=== PATIENT | female | born 1950 | race Two or more races ===

== ENCOUNTER 2016-11-26 09:53 | Emergency (ER) | payer OTHER ==
[2016-11-26 09:57] VITALS: RESP 16
[2016-11-26] MEDS ORDERED: NS 1,000 ML IV ONE (10:46)
[2016-11-26] MEDS ORDERED: HYDROmorphONE/DILAUDID 1 MG/ML SYR IVP ONE (10:46)
--- NOTE | 2016-11-26 10:49 | EDPHY ---
H & P Stated Complaint: vag bleeding, cramping, started last night, cervical ca, chemo manuel Time Seen by Provider: 11/26/16 10:31 HPI/ROS: CHIEF COMPLAINT: Vaginal bleeding HISTORY OF PRESENT ILLNESS: Patient is a 66-year-old female with a history of uterine cancer stage IV treated by Dr. Arvizu with chemotherapy that finished in September. She has been told that it is terminal but is not currently on hospice or palliative care. She began having abdominal cramping and bleeding early this morning. She states that she has had mild to moderate bleeding intermittently. She has not been counting has just simply wiping with toilet paper. She has not had a fever. No vomiting. No dysuria. REVIEW OF SYSTEMS: Constitutional: denies: chills, fever, recent illness, recent injury EENTM: denies: blurred vision, double vision, nose congestion Respiratory: denies: cough, shortness of breath Cardiac: denies: chest pain, irregular heart rate, lightheadedness, palpitations Gastrointestinal/Abdominal: denies: abdominal pain, diarrhea, nausea, vomiting, blood streaked stools Genitourinary: See HPI Musculoskeletal: denies: joint pain, muscle pain Skin: denies: lesions, rash, jaundice, bruising Neurological: denies: headache, numbness, paresthesia, tingling, dizziness, weakness Hematologic/Lymphatic: denies: blood clots, easy bleeding, easy bruising Immunologic/allergic: denies: HIV/AIDS, transplant EXAM: GENERAL: Well-appearing, well-nourished and in no acute distress. HEAD: Atraumatic, normocephalic. EYES: Pupils equal round and reactive to light, extraocular movements intact, sclera anicteric, conjunctiva are normal. ENT: TMs normal, nares patent, oropharynx clear without exudates. Moist mucous membranes. NECK: Normal range of motion, supple without lymphadenopathy or JVD. LUNGS: Breath sounds clear to auscultation bilaterally and equal. No wheezes rales or rhonchi. HEART: Regular rate and rhythm without murmurs, rubs or gallops. ABDOMEN: Mild suprapubic tenderness, normoactive bowel sounds. No guarding, no rebound. Palpable mass suprapubically. : Patient refused. Small amount of blood in her pad. BACK: No CVA tenderness, no spinal tenderness, step-offs or deformities EXTREMITIES: Normal range of motion, no pitting or edema. No clubbing or cyanosis. NEUROLOGICAL: Cranial nerves II through XII grossly intact. Normal speech, normal gait. 5/5 strength, normal movement in all extremities, normal sensation PSYCH: Normal mood, normal affect. SKIN: Warm, dry, normal turgor, no visible rashes or lesions. Source: Patient Exam Limitations: No limitations - Personal History Current Tetanus/Diphtheria Vaccine: Unsure Current Tetanus Diphtheria and Acellular Pertussis (TDAP): Unsure - Medical/Surgical History Hx Asthma: No Hx Chronic Respiratory Disease: No Hx Diabetes: No Hx Cardiac Disease: No Hx Renal Disease: No Hx Cirrhosis: No Hx Alcoholism: No Hx HIV/AIDS: No Hx Splenectomy or Spleen Trauma: No Other PMH: cholecystectomy, lump on Left breast, appy, menopause at age 36, one , shingles 4-5 years ago, various veins, ill fitting dentures causing mouth pain, HTN, Diabetes,uterine/cervical cancer diagnosed 12/25/2015 - Family History Significant Family History: No pertinent family hx - Social History Smoking Status: Current every day smoker Alcohol Use: Sober Drug Use: None Constitutional: Initial Vital Signs Temperature (C) 36.5 C 11/26/16 09:54 Heart Rate 106 H 11/26/16 09:54 Respiratory Rate 16 11/26/16 09:54 Blood Pressure 133/90 H 11/26/16 09:54 O2 Sat (%) 97 11/26/16 09:54 O2 Delivery Mode Room Air Allergies/Adverse Reactions: acetaminophen [From Tylenol] Allergy (Verified 12/23/15 21:41) Home Medications: Medication Instructions Recorded Aspirin EC [Aspirin EC 325 mg (*)] 325 mg PO DAILY #30 tab 12/28/15 Atorvastatin Calcium [Lipitor 20 20 mg PO DAILY #30 tab 12/28/15 mg (*)] Dexamethasone [Decadron 4 MG (*)] 20 mg PO DAILY PRN 01/25/16 Prochlorperazine Maleate 10 mg PO Q6 PRN 01/25/16 [Compazine 10mg (*)] Oxycodone HCl [Dazidox] 5 mg PO Q4-6PRN PRN #10 tablet 11/26/16 Medical Decision Making ED Course/Re-evaluation: I spoke with Dr. Arvizu over the phone who states that she has stage 4 endometrial cancer. No surgery was offered to her at the time but may be appropriate now to help control symptoms and bleeding. He suggested we call Dr. Corrigan. It is common for the patient to refuse pelvic examinations. She has only ever had 1. This bleeding may be from erosion into the vaginal wall versus from the endometrium itself. She is on tamoxifen which can increase vaginal discharge but she has been on this for several months. I will call Dr. Corrigan for her input otherwise she may need to follow up with a metallurgical or materials technician. Dr. Arvizu suggests that this is appropriate for outpatient workup and treatment. 11:45 a.m. I discussed the case with Dr. Yanet Corrigan. She recommends a gynecology specialist. This is appropriate in the outpatient setting. She recommends Dr. Minoo Muse or Dr. Busby. 12:20 p.m. patient did allow me to perform a pelvic exam. She has small amount of blood coming from her office. No visible vaginal source. 12:30 p.m. I spoke to Dr. Daniela muse who agreed to see the patient in clinic. Differential Diagnosis: Partial list of the Differential diagnosis considered include but were not limited to; endometrial cancer, cervical cancer, hemorrhage and although unlikely based on the history and physical exam, I also considered hemorrhage, diverticulitis, GI bleed. I discussed these differential diagnoses and the plan with the patient as well as the usual and expected course. The patient understands that the diagnosis is provisional and that in medicine we are not always correct and that further workup is often warranted. Usual and customary warnings were given. All of the patient's questions were answered. The patient was instructed to return to the emergency department should the symptoms at all worsen or return, otherwise to followup with the physician as we discussed. - Data Points Laboratory Results: Laboratory Results 11/26/16 10:50 11/26/16 10:50 11/26/16 11/26/16 10:50 10:50 WBC 10.58 10^3/uL H 10^3/uL (3.80-9.50) RBC 3.90 10^6/uL L 10^6/uL (4.18-5.33) Hgb 11.5 g/dL L g/dL (12.6-16.3) Hct 34.6 % L % (38.0-47.0) MCV 88.7 fL fL (81.5-99.8) MCH 29.5 pg pg (27.9-34.1) MCHC 33.2 g/dL g/dL (32.4-36.7) RDW 13.7 % % (11.5-15.2) Plt Count 185 10^3/uL 10^3/uL (150-400) MPV 10.5 fL fL (8.7-11.7) Neut % (Auto) 75.9 % H % (39.3-74.2) Lymph % (Auto) 18.2 % % (15.0-45.0) Hardy % (Auto) 4.6 % % (4.5-13.0) Eos % (Auto) 0.6 % % (0.6-7.6) Baso % (Auto) 0.4 % % (0.3-1.7) Nucleat RBC Rel Count 0.0 % % (0.0-0.2) Absolute Neuts (auto) 8.03 10^3/uL H 10^3/uL (1.70-6.50) Absolute Lymphs (auto) 1.93 10^3/uL 10^3/uL (1.00-3.00) Absolute Monos (auto) 0.49 10^3/uL 10^3/uL (0.30-0.80) Absolute Eos (auto) 0.06 10^3/uL 10^3/uL (0.03-0.40) Absolute Basos (auto) 0.04 10^3/uL 10^3/uL (0.02-0.10) Absolute Nucleated RBC 0.00 10^3/uL 10^3/uL (0-0.01) Immature Gran % 0.3 % % (0.0-1.1) Immature Gran # 0.03 10^3/uL 10^3/uL (0.00-0.10) Sodium 136 mEq/L mEq/L (134-144) Potassium 4.1 mEq/L mEq/L (3.5-5.2) Chloride 105 mEq/L mEq/L (97-110) Carbon Dioxide 21 mEq/l L mEq/l (22-31) Anion Gap 10 mEq/L mEq/L (8-16) BUN 22 mg/dL mg/dL (7-23) Creatinine 1.5 mg/dL H mg/dL (0.6-1.0) Estimated GFR 35 Glucose 116 mg/dL H mg/dL (70-100) Calcium 9.0 mg/dL mg/dL (8.5-10.4) Medications Given: Discontinued Medications Hydromorphone HCl (Dilaudid) 0.5 mg IVP EDNOW ONE Stop: 11/26/16 10:47 Last Admin: 11/26/16 11:01 Dose: 0.5 mg Sodium Chloride (Ns) 1,000 mls @ 0 mls/hr IV ONCE ONE PRN Reason: Wide Open Stop: 11/26/16 10:47 Last Admin: 11/26/16 11:00 Dose: 1,000 mls Departure - Departure Disposition: Home, Routine, Self-Care Clinical Impression: Vaginal bleeding, Endometrial cancer Condition: Fair Instructions: Dysfunctional Uterine Bleeding (ED) Additional Instructions: We spoke with Dr. Daniela muse who is expecting you to make an appointment within the next week. Her phone number is [phone] Nosotros hablamos con la Dra. Daniela Muse quien esta esperado que usted marlin joyce lucia con jessica la proxima semana. Barbour malka de telefono es [phone]. Referrals: Daniela Muse MD [Retired Resigned] - As per Instructions Prescriptions: Oxycodone HCl [Dazidox] 5 mg PO Q4-6PRN PRN #10 tablet PRN Reason: Pain, Mild
[2016-11-26 10:57] LABS: % IMMATURE GRANULYOCYTES 0.3 % (0.0-1.1); ABSOLUTE IMMATURE GRANULOCYTES 0.03 10^3/uL (0.00-0.10); ADD DIFF? NO; ADD MORPH? NO; ADD SCAN? NO; ATYPICAL LYMPHOCYTE FLAG 10 (0-99); FRAGMENT RBC FLAG 0 (0-99); HEMATOCRIT 34.6 % (38.0-47.0); HEMOGLOBIN 11.5 g/dL (12.6-16.3); LEFT SHIFT FLG 0 (0-99); LIPEMIA HEMOLYSIS FLAG 80 (0-99); MEAN CELL HEMOGLOBIN 29.5 pg (27.9-34.1); MEAN CELL HEMOGLOBIN CONCENTR. 33.2 g/dL (32.4-36.7); MEAN CELL VOLUME 88.7 fL (81.5-99.8); MEAN PLATELET VOLUME 10.5 fL (8.7-11.7); PLATELET CLUMPS FLAG 0 (0-99); PLATELET COUNT 185 10^3/uL (150-400); RED CELL DISTRIBUTION WIDTH 13.7 % (11.5-15.2)
[2016-11-26 11:45] LABS: ANION GAP 10 mEq/L (8-16); CARBON DIOXIDE 21 mEq/l (22-31); CHLORIDE 105 mEq/L (97-110); CREATININE 1.5 mg/dL (0.6-1.0); GLOMERULAR FILTRATION RATE 35; GLUCOSE 116 mg/dL (70-100); POTASSIUM 4.1 mEq/L (3.5-5.2); SODIUM 136 mEq/L (134-144)
[2016-11-26 13:03] VITALS: BP 110/59; PULSE 77; TEMP 98.2; O2SAT 94
== END 2016-11-26 13:13 | disposition home or self-care (01) ==
DX: N93.9 Abnormal uterine and vaginal bleeding, unspecified (principal); C54.1 Malignant neoplasm of endometrium; I10 Essential (primary) hypertension; E11.9 Type 2 diabetes mellitus without complications; F17.200 Nicotine dependence, unspecified, uncomplicated; Z79.82 Long term (current) use of aspirin
CPT/HCPCS: 96361; 96374; 99284; J1170

== ENCOUNTER → 2017-11-05 | Outpatient (CLI) | payer OTHER | LOC: FIMAGING 16:26 | PROVIDERS: ATTEND Nurse Practitioner | DX: R22.41 Localized swelling, mass and lump, right lower limb (principal) | CPT/HCPCS: 86304-90 ==

== ENCOUNTER → 2018-10-28 | Outpatient (CLI) | payer OTHER ==
[~2018-10-28] MED LIST: IOPAMIDOL (ISOVUE 370) 100 ML BTL IV ONE
== END ==
LOC: FIMAGING 17:52
PROVIDERS: ATTEND Surgery
DX: I65.22 Occlusion and stenosis of left carotid artery (principal); I77.1 Stricture of artery
CPT/HCPCS: 70498; Q9967; 82565-PO

== ENCOUNTER → 2018-11-12 | Outpatient (CLI) | payer OTHER | LOC: FIMAGING 07:50 | PROVIDERS: ATTEND Surgery | DX: I72.2 Aneurysm of renal artery (principal); I77.4 Celiac artery compression syndrome; I70.8 Atherosclerosis of other arteries; K40.90 Unilateral inguinal hernia, without obstruction or gangrene, not specified as recurrent | CPT/HCPCS: 75635; Q9967; 82565-PO ==

== ENCOUNTER → 2018-12-24 | Outpatient (CLI) | payer OTHER ==
[~2018-12-24] MED LIST changes: +FUROSEMIDE 40 MG/4 ML VIAL ONE; -IOPAMIDOL (ISOVUE 370) 100 ML BTL IV ONE
== END ==
LOC: FIMAGING 14:04
PROVIDERS: ATTEND Physician Assistant Medical
DX: N26.1 Atrophy of kidney (terminal) (principal)
CPT/HCPCS: 78708; A9562; J1940

== ENCOUNTER → 2019-01-17 | Outpatient (CLI) | payer OTHER | LOC: FIMAGING 15:32 ==